=== PATIENT | female | born 2000 | race Caucasian/White ===

== ENCOUNTER 2019-09-07 09:53 | Outpatient (CLI) | payer MEDICAID, SELFPAY ==
--- NOTE | 2019-09-07 10:06 | US_ITS ---
WS: [id number] OB ultrasound, 09/07/2019 Clinical Data: ANATOMY SCAN/SECOND TRIMESTER Comparison: None. Findings: There is a single intrauterine in the breech presentation. The placenta is posterior and gr sola 0. There is a normal amount of amnionic fluid. The heart rate is 144 beats per minute. Measurements of growth and development: BPD: 4.49 cm HC: 16.1 cm AC: 14.71 cm FL: 3.19 cm The estimated weight is 320 g or approximately 2 oz.. The estimated gestational age is 19 weeks 6 days with an GUSTAVO of approximately 01/26/2020. anatomy show a normal stomach, kidneys, bladder, cord insertion, three-vessel cord, entire spin e, four-chamber heart, lateral cerebral ventricles, cerebellum and cisterna magna. US/US OB >= 14 weeks fetus [id number] Impression: 1. Single intrauterine in breech presentation. 2. Estimated gestational age 19 weeks 6 days with an GUSTAVO of 01/26/2020. 3. heart rate 144 beats per minute.
== END 2019-09-07 09:54 | disposition home or self-care (01) ==
LOC: RAD 09:58
PROVIDERS: Family Provider Pediatrics Adolescent Medicine; PCP Family Medicine; Visit Provider Family Medicine
DX: Z34.92 Encounter for supervision of normal pregnancy, unspecified, second trimester (principal)
CPT/HCPCS: 76805

== ENCOUNTER 2020-01-02 07:40 | Outpatient (CLI) | payer MEDICAID, SELFPAY ==
--- NOTE | 2020-01-02 07:52 | US_ITS ---
WS: [id number] LIMITED OBSTETRICAL ULTRASOUND HISTORY: GROWTH CHECK COMPARISON: 09/07/2019 Presentation: Vertex. Cervix: Closed and normal length. Placenta: Posterior, no previa or abruption. Grade: 2 HEART: FHR of 133 BPM. measurements: BPD = 8.6 cm = 34w4d HC = 31.4 cm = 35w2d AC = 33.2 cm = 37w1d FL = 7.1 cm = 36w3d Amniotic fluid visually is normal. EFW: 2933 g; 64th %. Head circumference and BPD are measuring at the fifth and 12th percentile retrospectively. Head measu rements also lag behind the remaining biometry by 2-3 weeks. AGA by ultrasound: 35w6d GUSTAVO by ultrasound: 01/31/2020 US/[place] [id number] IMPRESSION: 1. Single intrauterine gestation of 35 weeks 6 days with EDC of 01/23/2020. 2. Head measurements are lagging behind the remaining biometry by 2-3 weeks. 3. Overall the GUSTAVO is within 1-2 weeks.
== END 2020-01-02 07:41 | disposition home or self-care (01) ==
PROVIDERS: Family Provider Pediatrics Adolescent Medicine; PCP Family Medicine; Visit Provider Family Medicine
DX: O26.03 Excessive weight gain in pregnancy, third trimester (principal); Z3A.35 35 weeks gestation of pregnancy
CPT/HCPCS: 76816

== ENCOUNTER 2020-02-02 09:58 | Outpatient (CLI) | payer MEDICAID, SELFPAY ==
[2020-02-02 10:50] VITALS: RESP 18; TEMP 36.7
--- NOTE | 2020-02-02 10:58 | USR_ITS ---
PROCEDURE INFORMATION: Exam: US Biophysical Profile Without Non-Stress Test Exam date and time: 02/02/2020 11:32 AM Age: 19 years old Clinical indication: Other: Post dates; TECHNIQUE: Imaging protocol: US biophysical profile without non-stress testing. COMPARISON: US OB >= 14 weeks fetus [id number] 09/07/2019 10:13 AM FINDINGS: BIOPHYSICAL PROFILE: Breathin/2 Gross body movements: 2/2 tone: 2/2 Qualitative amniotic fluid: 2/2 Biophysical Profile Score: 8/8 US/US OB BPP wo NST [id number] IMPRESSION: 1. Biophysical profile score is 8 out of 8. 2. For vertex presentation. 3. heart beat 153 bpm. 4. Left-sided and fundal placenta.
[2020-02-02 11:00] VITALS: BMI 39.6
[2020-02-02 11:10] VITALS: BP 118/66; PULSE 102
[2020-02-02 11:17] VITALS: BP 121/72; PULSE 87
[2020-02-02 11:33] VITALS: BP 111/59; PULSE 96
[2020-02-02 11:38] VITALS: BP 111/59; PULSE 96; RESP 18; TEMP 36.7
== END 2020-02-02 11:35 | disposition home or self-care (01) ==
LOC: RAD 09:59 → OPOB 10:56 → OBGYN 02-04 07:58
PROVIDERS: Family Provider Pediatrics Adolescent Medicine; PCP Family Medicine; Visit Provider Family Medicine
DX: O48.0 Post-term pregnancy (principal); Z3A.00 Weeks of gestation of pregnancy not specified
CPT/HCPCS: 59025; 76819; 99211

== ENCOUNTER 2020-02-06 08:20 | Outpatient (CLI) | payer MEDICAID, SELFPAY ==
[2020-02-06 08:30] VITALS: BP 150/76; PULSE 101; O2SAT 98
[2020-02-06 09:04] VITALS: BP 150/76; RESP 18; O2SAT 99
--- NOTE | 2020-02-06 09:10 | PC.NURSE ---
THIS PARTS CHASER TALKED WITH PATIENT AND SHE SAID THAT SHE HAD APPOINTMENT FOR ULTRASOUND FOR 11 TODAY AND HAS APPOINTMENT TOMORROW WITH DR. MERCHANT. TOLD PT TO BE SURE AND KEEP APPOINTMENT WITH DR. MERCHANT AND GAVE HER ALL THE PRECAUTIONS. AND THEN DISCHARGED HER HOME.
--- NOTE | 2020-02-06 12:30 | US_ITS ---
WS: [id number] US OB lmt w/ BPP wo NST REASON FOR EXAM: GESTATIONAL DIABETES FINDINGS: Cephalic presentation is seen. heart rate 160 bpm Amniotic fluid indices appear to be normal. Abdominal circumference 38.17 cm Biparietal diameter the head 8.23 cm 33 weeks 1 day gestation the head circumference suggests 3 7 weeks 4 days gestation with a due date of February 23, 2020. Note the head with very low and diff icult to measure. The weight is estimated 39 59 g US/US OB lmt w/ BPP wo NST IMPRESSION: The measurements appear to be nonvalid due to the low position of the hea d. The fetus appears to be at least due date of March 04, 2020 The amniotic fluid indices heart rate and movement are all normal The fetus is in the cephalic presentation.
[2020-02-06 13:29] VITALS: BP 124/71; PULSE 130
== END 2020-02-06 08:21 | disposition home or self-care (01) ==
LOC: OPOB 08:28
PROVIDERS: Family Provider Pediatrics Adolescent Medicine; PCP Family Medicine; Visit Provider Family Medicine
DX: O48.0 Post-term pregnancy (principal); Z3A.00 Weeks of gestation of pregnancy not specified
CPT/HCPCS: 59025; 76815; 76819; 99211

== ENCOUNTER 2020-02-09 20:05 | Inpatient (IN) | payer MEDICAID, SELFPAY ==
[2020-02-09] VITALS (77 sets, daily range): BP systolic 0–148; BP diastolic 0–81; PULSE 72–124; RESP 18; TEMP 37.1; O2SAT 34–99
--- NOTE | 2020-02-09 20:14 | P.HP_ITS ---
Providers/Chief Complaint Admitting Physician: Cynthia Nye MD Primary Care Provider: Cynthia Nye MD Chief Complaint: ob triage HPI PROPERTY CLAIMS MANAGER History of Present Illness Radha Thompson is a 19 year old female 1 para 0 with an EDC of 01/26/2020 as determined by sure last menstrual period of 04/21/2019 and confirmed by ultrasound. She presents at 42-0/7 weeks gestation for pain relief. She experienced spontaneous rupture of membranes at approximately 330 this morning. Her fluid was clear and without odor. She then began danyell shortly thereafter and was laboring at home with the goal of a home . On her last cervical exam with the family's packing machine tender, patient had just an anterior rim of cervix and was +1 station. Most of her pain is in her back, and she is unable to relax in order to completely dilate. She is requesting an epidural. Her course has been complicated by excessive weight gain in . She is gained over 70 pounds, mostly in the hips, thighs and buttock area. Her fundal height has never been more than could be accounted for by her dates. We had an estimated weight done 3 days ago which was 3950 g. She has been afebrile throughout her labor today. She states that her contractions are every 1 to 2 minutes and strong. Present Details : 1 Para: 0 Date of Last Menstrual Period: 04/21/19 Calculated Date of Delivery: 01/26/20 Gestational Age Based on Last Menstrual Period: 42 Dating criteria OB: LMP confirmed by 2nd trimester US care: good care Ultrasounds: normal mid trimester US and other (NST/BPP on 02/02/2020 and 02/06/2020 were 10 out of 10, EFW on 02/06/2020 was 3950 g) Obstetrical complications: other (Postdates) Medical complications OB: other (Excessive weight gain during ) Labs Blood type OB HPI: O (+) positive Rubella: Immune RPR: Negative HBsAG: Negative Other Lab Information: INITIAL LABS: Blood Type: O+ D (Rh) Type: Positive Antibody Screen: Negative HCT/HB.0/35.2 Rubella: Immune VDRL: Nonreactive Urine Culture/Screen: Negative HBsAg: Negative HIV Counseling/Testing: Negative Hepatitis C: Negative Chlamydia: Negative GC: Negative Varicella Titer: Immune MSAFP/Multiple Markers: Negative 24-30 WEEK LABS: HCT/HGB: 10.9 Diabetes Screen: 130 3 hour GTT (if screen abnormal): [] D (Rh) Antibody Screen: [] Tdap: Given 11/08/2019 Group B Strep (35-37 weeks): Negative Review of Systems Const: Denies: fever(s) : Reports: pelvic pain (Intermittent and consistent with contractions which are also felt in her back, pressure); Denies: vaginal odor, vaginal bleeding or vaginal discharge Medications/Allergies Home Medications Medication Instructions Recorded Confirmed Last Taken Type [id number] fumarate-FA tab PO 02/02/20 02/02/20 09:00 History [] Allergies Allergy/AdvReac Type Severity Reaction Status Date / Time No Known Allergies Allergy Verified 02/02/20 11:04 PFSH PROPERTY CLAIMS MANAGER PFSH: Surgical History (Updated 02/09/20 @ 20:28 by Cynthia Nye MD) History of submandibular gland removal Social History (Updated 02/09/20 @ 20:31 by Cynthia Nye MD) Smoking and tobacco status: never smoked Second hand smoke exposure: No Alcohol intake: never Substance/Drug Use: never Adopted: No Caregiver/support person: Yes Lives independently: Yes Household members: family Marital status: Single Number of children: 0 Number of grandchildren: 0 Highest education level completed: High School Graduate Education level details: Homeschooled Current occupational status: employed 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 Current occupational exposures/hazards: No History of recent travel: No Sexually active: Yes Other Female Reproductive History: Hx Age of Menarche: 9 Duration of menses: 6-7 days Date of Last Menstrual Period: 04/21/19 Cycle Length: 30 Menstrual flow: normal/abnormal: normal History History History 1 Term 0 Miscarriages/Ectopic 0 0 Living Children 0 Care GUSTAVO Calculator Estimated Delivery Date Method Current WG Current Estimate 01/26/20 LMP (Certain) 42w 0d Expected Delivery Route/Plan Vaginal Vitals/I&O/Wt Last Vital Signs Pulse 94 02/09/20 20:08 BP 145/81 02/09/20 20:08 Physical Exam Narrative: EXAM NARRATIVE: For complete history and physical examination plea se refer to her record. heart tones are category 1 with moderate variability, accelerations and no decelerations and normal baseline with contractions every 1-1/2 to 2 minutes and strong Const: COMMON NORMALS: patient oriented x3, alert and well nourished GENERAL APPEARANCE: cooperative and in distress (Breathing and moaning with contractions) : MANUAL OB EXAM: dilated 9 cm (Anterior rim remains), effaced fully, station +1 and other (Vertex) AMNIOTIC FLUID: clear Psych: COMMON NORMALS: mental status grossly normal, Normal thought process present, cooperative, normal affect and speech normal A&P Assessment and plan (1) Post-dates : Status: Acute Qualifiers: Post-term type: 40-42 weeks gestation Qualified Code(s): O 48.0 - Post-term (2) Spontaneous rupture of membranes: Status: Acute (3) Spontaneous onset of labor: Status: Acute (4) Excessive weight gain during , antepartum: Status: Acute Additional A&P Information Patient's packing machine tender called me at 7:09 PM and stated that patient had had an anterior rim of cervix which she felt was starting to swell. Patient had been progressing very well prior to this, and patient was desirous of pain relief. The packing machine tender felt that this was necessary as well in order to progress to the second stage of labor. I advised them to come to the hospital immediately as her membranes had been ruptured over 15 hours as well. Please refer to extensive documentation in her record. Attestations Medical Necessity Statement*: As patient has ruptured membranes and is actively laboring she will continue to need inpatient hospitalization. Time Spent in Patient Care: Greater than 35 minutes (>than 50% of time spent in counselling and/or direct pt care on unit) . Coding Level of Care Code Acute Clinical Partner for Chg Fwd Diagnoses Post-dates O48.0 Post-term type: 40-42 weeks gestation Spontaneous rupture of membranes Spontaneous onset of labor Excessive weight gain during , antepartum O26.00
[2020-02-09 20:28] LABS: Basophils % 0.2 %; Hematocrit 34.6 % (37.0-47.0); Hemoglobin 10.7 g/dL (11.5-15.3); Lymphocytes # 0.9 10^3/uL (1.5-6.5); Lymphocytes % 3.8 %; Mean Corpuscular HGB Conc 30.9 g/dL (30.0-36.0); Mean Corpuscular Hemoglobin 25.2 pg (28.0-34.0); Mean Corpuscular Volume 81.4 fL (81-99); Mean Platelet Volume 9.3 fL (7.4-10.4); Monocytes # 0.9 10^3/uL (0.2-0.9); Monocytes % 3.9 %; Neutrophils # 21.1 10^3/uL (1.8-8.0); Neutrophils % 91.4 %; Nucleated Red Blood Cells % 0 %; Platelet Count 315 10^3/cmm (130-400); Red Blood Count 4.25 10^6/uL (4.1-5.3); Red Cell Distribution Width 15.8 % (12.1-15.1); White Blood Count 23.1 10^3/uL (4.5-13.0)
[2020-02-09] MEDS: diphenhydrAMINE 50 mg/mL SDV 1mL IVP (20:37)
--- NOTE | 2020-02-09 21:44 | P.ANESASSM_ITS ---
Pre-Anesthetic Assessment Pre-Anesthetic Assessment: Height/Weight: Height 1.65 m Pulse BP Pulse Ox 87 100/47 99 02/09/20 21:40 02/09/20 21:40 02/09/20 21:42 Preop Diagnosis: IUP Proposed Procedure: labor epidural Was Beta [place] taken within 24 hours: N/A Social: Social History: No alcohol and No tobacco Exam: Pre-Anes Outpt Exam: alert, oriented x 3 and clear to auscultation bilaterally Airway: Submandibular: WNL Cervical ROM: WNL MP: 2 History/ROS: No significant history except as noted Pulmonary: Pulmonary: None reported CV/HEM: CV/HEM: HTN : : None reported Hepatic: Hepatic: None reported GI: GI: GERD Metabolic: Metabolic: None reported Musc/skel: Musc/skel: None reported Neuropsych: Neuropsych: None reported Anesthetic Plan: ASA status: 2 Anesthesia: Anesthesia Evaluation and Regional (specify below) PFSH Anesthesia PFSH: Surgical History (Updated 02/09/20 @ 20:28 by Cynthia Nye MD) History of submandibular gland removal Social History (Updated 02/09/20 @ 20:31 by Cynthia Nye MD) Smoking and tobacco status: never smoked Second hand smoke exposure: No Alcohol intake: never Substance/Drug Use: never Adopted: No Caregiver/support person: Yes Lives independently: Yes Household members: family Marital status: Single Number of children: 0 Number of grandchildren: 0 Highest education level completed: High School Graduate Education level details: Homeschooled Current occupational status: employed 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 Current occupational exposures/hazards: No History of recent travel: No Sexually active: Yes Female Reproductive History: Date of last menstrual period: 04/21/19 : 1 Data Anesthesia CBC & Chem 7: 02/09/20 20:14 Other Labs: Laboratory Results - last 48 hr 02/09/20 20:14 WBC 23.1 H RBC 4.25 Hgb 10.7 L Hct 34.6 L MCV 81.4 MCH 25.2 L MCHC 30.9 RDW 15.8 H Plt Count 315 MPV 9.3 Neut % (Auto) 91.4 Lymph % (Auto) 3.8 [place] % (Auto) 3.9 Eos % (Auto) 0.0 Baso % (Auto) 0.2 Neut # (Auto) 21.1 H Lymph # (Auto) 0.9 L [place] # (Auto) 0.9 Eos # (Auto) 0.0 Baso # (Auto) 0.0 Nucleated RBC % (auto) 0 Nucleated RBCs # 0.0 Cardiac Studies: No Data to Display Anesthesia Procedures Epidural: Time Out Performed: Yes Consents Signed: Procedure Consent (to room at 2050) and NPO Consent Consent: requested by attending/covering physician and from patient Lumbar Level: L3-L4 Epidural position: sitting Epidural procedure: sterile prep of area, 1% lidocaine to numb the area (3 cc ), 18 g needle (L3-L4 interspace), negative for paresthesia passed, neg for p aresthesia, test dose given (3 cc), 1.5% xylocaine 1:200k epi, no systemic response, sterile dressing applied, L.U.D. no apparent complications and 0.2% Ropiavacaine @ mls/hr (13 mls/hr) Additional Comments: ELIAS at 8 cm catheter threaded without difficulty. @ 14 cm at skin. 2 % lido 10 mls given. pump started VSS see OBYX
[2020-02-10] VITALS (41 sets, daily range): BP systolic 85–149; BP diastolic 45–81; PULSE 72–146; RESP 16–118; TEMP 36.3–37.9; O2SAT 97–100
[2020-02-10] MEDS: ampicillin 2,000 MG in sodium chloride 0.9% (plus) 50 ML 100 MG IV (00:16)
--- NOTE | 2020-02-10 01:22 | PM.OBGYPN ---
WATCH CASE POLISHER Subjective Subjective: Interval history: Patient arrived at the hospital just after 7:30 PM on 02/09/2020. We began her IV fluids in preparation for her epidural, and she was able to get her epidural at 2130. She was found to be completely dilated at 2205, and she labor down until 2330. At that time we began pushing, and we also noted passage of meconium in her amniotic fluid. She received her first dose of ampicillin at 00 16 since membranes had been ruptured approximately 20 hours. We had a brief stint during which heart tones were in the upper 160s to 170s at which time patient's temperature was found to be 100.3. This was at 0005. She pushed fairly regularly from 2330 until 0114 on 02/10/2020, with the exception of about a 10 to 15-minute pause. She was complaining of low back pain, and at 0114 we elected to have her rest for a while on her left side with the peanut ball in place. Throughout her active portion of the second stage she held both legs, did tug-of-war, did alternate legs holding behind the knee, all fours and close knee pushing. Labor: Pain Control: epidural Dilation (cm): 10 Effacement (%): 100 Station: 0 Amniotic Membrane Status: Ruptured Monitor Mode: External Contraction Pattern: Irregular Contraction Intensity: Strong/Firm Status: Category l Vitals/I&O/Wt Last Vital Signs Pulse 146 H 02/10/20 01:04 BP 85/69 02/10/20 01:04 Pulse Ox 98 02/09/20 23:18 Physical Exam Narrative: EXAM NARRATIVE: heart tones have a baseline in the 140s with moderate variability, accelerations and no decelerations. Contractions are every 1-1/2 to 4 minutes and strong : MANUAL OB EXAM: dilated 10 cm, effaced fully, station 0 and other (Vertex, occiput posterior) AMNIOTIC FLUID: Meconium-stained amniotic fluid present Data : 02/09/20 20:14 A&P Assessment and plan (1) Prolonged artificial rupture of membranes, antepartum: We have begun ampicillin, and there is been no maternal fever. Status: Acute (2) Meconium in amniotic fluid: Status: Acute Attestations Medical Necessity Statement*: As patient is actively laboring she will continue to need inpatient management/hospitalization. Coding Level of Care Code Acute Emergency Vehicle Dispatcher for Chg Fwd Diagnoses Prolonged artificial rupture of membranes, antepartum O75.5 Meconium in amniotic fluid P96.83
--- NOTE | 2020-02-10 03:55 | PM.OBGYPN ---
AGING ROOM OPERATOR Subjective Subjective: Interval history: At 1:14 AM patient began rest on her left side with the peanut ball in place. She spent at least 30 minutes in that position and then was switched to the right side where she remained with the peanut ball in place for at least 30 minutes as well. She stated that her back pain seemed to be better at that time but she was not able to rest very well. She then was doing another attempt at pushing and did not seem to be changing at all in station. Baby remained occiput posterior at that time. We then put patient in Trendelenburg for approximately 20 minutes, and she noted that she did not have much in the way of back pain but could feel the baby more in her ribs initially on her left side and then on her right side. It looked as though the baby's vertex did come out of the pelvis slightly while she was in Trendelenburg, but we were only able to get her between LOP and ROP. Patient was then placed in the thrown position, and she was unable to tolerate it secondary to back and pelvic pain. Labor: Dilation (cm): 10 Effacement (%): 100 Station: 0 Amniotic Membrane Status: Ruptured Monitor Mode: External Contraction Pattern: Irregular Contraction Intensity: Strong/Firm Status: Category l Vitals/I&O/Wt Last Vital Signs Pulse 116 H 02/10/20 03:44 BP 123/60 02/10/20 03:44 Pulse Ox 98 02/09/20 23:18 Data : 02/09/20 20:14 A&P Assessment and plan (1) Meconium in amniotic fluid: Status: Acute (2) Prolonged artificial rupture of membranes, antepartum: Status: Acute (3) Excessive weight gain during , antepartum: Status: Acute (4) Post-dates : Status: Acute Qualifiers: Post-term type: 40-42 weeks gestation Qualified Code(s): O48.0 - Post-term (5) Spontaneous onset of labor: Status: Acute (6) Spontaneous rupture of membranes: Status: Acute (7) Occiput posterior presentation of fetus: I have called Dr. Keene at approximately 3:40 AM for section consultation. Status: Acute Attestations Medical Necessity Statement*: As patient has been laboring and has not yet delivered and is about to go to section she will continue to need inpatient hospitalization Coding Level of Care Code Acute Automatic Bow Maker Machine Tender for Chg Fwd Diagnoses Meconium in amniotic fluid P96.83 Prolonged artificial rupture of membranes, antepartum O75.5 Excessive weight gain during , antepartum O26.00 Post-dates O48.0 Post-term type: 40-42 weeks gestation Spontaneous onset of labor Spontaneous rupture of membranes Occiput posterior presentation of fetus O64.0XX0
[2020-02-10] MEDS: famotidine 20 mg/2 mL INJ IVP (04:09)
[2020-02-10] MEDS: citric acid-sodium citrate 30 mL UDC PO (04:10)
[2020-02-10] MEDS: metoclopramide 5 mg/mL SDV 2 mL 10 MG IVP (04:10)
--- NOTE | 2020-02-10 04:24 | PM.OBGYCN ---
Providers/Reason for Consult Consulting Physican/Specialty*: Jonathan Keene MD -consulting for section Reason for Consult*: Arrest of descent Attending Physician: Cynthia Nye MD Primary Care Provider: Cynthia Nye MD ORDERING BOX OPERATOR Consult HPI History of Present Illness Radha Thompson is a 19 year old at 42.1 weeks gestation by LMP consistent with ultrasound. Her is complicated by postdates , plan to deliver with accounting manager at home. The patient presented to labor and delivery triage secondary to labor. She had been labor at home and her pain was significant. From reports, it sounds as if she might have been pushing prior to her cervix being fully dilated with a accounting manager at home. Upon arrival, she was an anterior rim. She began pushing at approximately 11:30 PM on 02/09/2020. After 3 hours of pushing, there was no significant descent. For this reason I was consulted for a section. SROM took place at approximately 3:30 AM on 02/09/2020. Clear fluid was noted. That has turned to meconium stained fluid as of 10:05 PM on 02/09/2020. The patient had an elevated temperature and was started on ampicillin at midnight. Currently the patient's epidural is not working well and she is having significant pain with contractions. The patient currently denies any chest pains and shortness of breath. Present Details : 1 Para: 0 Date of Last Menstrual Period: 04/21/19 Meds/Allergies Home Medications and Allergies Home Medications Medication Instructions Recorded Confirmed Last Taken Type [id number] fumarate-FA tab PO 02/02/20 02/02/20 09:00 History [] Allergies Allergy/AdvReac Type Severity Reaction Status Date / Time No Known Allergies Allergy Verified 02/02/20 11:04 Current Medications Current Medications Generic Name Dose Route Start Last Admin Trade Name Freq PRN Reason Stop Dose Admin Ampicillin Sodium 2,000 mg/ 50 mls @ 100 mls/hr 02/10/20 00:15 02/10/20 00:16 Sodium Chloride IV 100 mls/hr ONCE BETTIE Administration Protocol PFS ORDERING BOX OPERATOR PFSH: Surgical History History of submandibular gland removal Social History Smoking and tobacco status: never smoked Second hand smoke exposure: No Alcohol intake: never Substance/Drug Use: never Adopted: No Caregiver/support person: Yes Lives independently: Yes Household members: family Marital status: Single Number of children: 0 Number of grandchildren: 0 Highest education level completed: High School Graduate Education level details: Homeschooled Current occupational status: employed 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 Current occupational exposures/hazards: No History of recent travel: No Sexually active: Yes Other Female Reproductive History: Hx Age of Menarche: 9 Duration of menses: 6-7 days Date of Last Menstrual Period: 04/21/19 Cycle Length: 30 Menstrual flow: normal/abnormal: normal Vitals/I&O/Wt Last Vital Signs Pulse 105 H 02/10/20 04:04 BP 139/66 02/10/20 04:04 Pulse Ox 98 02/09/20 23:18 Physical Exam Narrative: EXAM NARRATIVE: General: Alert and oriented x3 Mouth: Mucous membranes moist, pharynx non-erythematous Cardiac: Regular rate and rhythm without murmurs Lungs: Clear to auscultation bilaterally without wheezes, crackles or rhonchi Abdomen: Soft, fundus consistent with gestational age. No signs of infection over the lower abdomen. Extremities: Trace edema in the bilateral lower extremities A&P Assessment and plan (1) Intrauterine : Status: Acute (2) Arrest of descent, delivered, current hospitalization: Status: Acute Consult Attestations Medical Necessity Statement: Patient will be here for greater than 2 midnights due to intrapartum and management after section. Coding Level of Care Code Acute Data Entry Machine Operator for Chg Fwd Diagnoses Intrauterine Z34.90 Arrest of descent, delivered, current hospitalization O62.1
[2020-02-10] MEDS: clindamycin 900 MG/50 ML PREMIX 100 MG IV ×3 (04:45→20:35)
--- NOTE | 2020-02-10 06:14 | PM.OP ---
Operative Report Date of procedure: February 10, 2020 Pre-op Diagnosis: IUP Pre-op Diagnosis: 1. Intrauterine at 42.1 weeks gestation 2. Arrest of descent 3. Prolonged rupture of membranes 4. Meconium-stained fluid Post-op Diagnosis: 1. Intrauterine status post primary low transverse section at 42.1 weeks gestation 2. Arrest of descent 3. Prolonged rupture of membranes 4. Meconium-stained fluid 5. Delivery of healthy female weighing 9 pounds 2 ounces with Apgars of Post-op Findings: 1. Delivery of healthy infant female weighing 9 pounds 2 ounces 2. head in the OP position. 3. Intact placenta with meconium staining. Procedure Done: Primary low transverse section Specimens removed/disposition: Placenta discarded Surgeon: Jonathan Keene Anesthesia: General Estimated blood loss (mL): 800 Complications: None Condition: stable Brief History: Radha Thompson is a 19 year old G1 now P1 status post primary low transverse section at 42.1 weeks gestation by LMP consistent with ultrasound. 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 The patient presented to labor and delivery secondary to pushing at home without delivery. She is found to have an anterior rim. The patient became complete and pushed for approximately 3 hours, however did not have any significant descent. Multiple position changes were tried, however without descent, it was confirmed that a section was necessary. Please see Dr. Nye's note for full details. Procedure: After informed consent was obtained, the patient was taken to the operating room and the patient was prepped and draped in normal sterile fashion in a dorsal supine position. General anesthesia was given and adequate anesthesia was confirmed. At 4:40 AM on 02/10/2020, a Pfannenstiel skin incision was made and carried through to the underlying layer of fascia using a scalpel. The fascial incision was then extended laterally using curved Mayos. The fascia was then grasped with Shivam clamps and the underlying rectus muscles were dissected off taking care to avoid injury to the underlying tissues. The peritoneum was entered bluntly with one digit. It was then bluntly. The bladder blade was placed and the vesicouterine peritoneum was well below the lower uterine segment of the uterus. The uterine incision was made in the lower uterine segment in a transverse fashion with the scalpel at 4:42 AM. The amniotic membrane was entered bluntly and a large amount of clear fluid was noted. There was difficulty with delivering the 's head, so a Kiwi was placed to assist with delivery. The infant's head delivered atraumatically at 4:43 AM. There was a nuchal cord. The infant was in the OP position. The mouth and nose were suctioned. The rest of the delivered without difficulty. The was crying shortly after delivery and had good tone. The cord was clamped and cut and the infant was handed to the awaiting pediatric nurses. The placenta was then manually expressed. The uterus was then exteriorized from the abdomen and a wet lap was used to clear the uterus of clots and debris. The bladder blade was reinserted and the uterine incision was closed using 0 chromic in a running locking fashion. A second layer of the same suture was used in the same manner. Excellent hemostasis was obtained. Next the posterior cul-de-sac was inspected and was cleared of any blood. The uterus was then placed back into the abdomen. The gutters were cleared of any further clots and debris and the uterine incision was again inspected and hemostasis was noted. The subfascial tissue was inspected for hemostasis. The peritoneum was re-approximated using 2-0 plain in a running fashion. The fascia was then re-approximated using 0 Vicryl in a running fashion. The subcutaneous tissue was inspected for hemostasis. Souleymane's fascia was then re-approximated using 3-0 plain in a running fashion. Good hemostasis was noted. The subcutaneous tissue was then re-approximated using a subcuticular stitch with 4-0 Vicryl. Steri-Strips were then placed to re-approximate the skin layer. The patient tolerated the procedure well and was recovered in stable condition. Estimated blood loss was 800 mL. Urine in the Delgado catheter was yellow. Currently both the mother and infant are doing well.
[2020-02-10] MEDS: miSOPROStol 200 mcg Tablet 800 MCG PR (08:48)
[2020-02-10] MEDS: ketorolac 30 mg/mL INJ IVP ×2 (13:54→20:35)
--- NOTE | 2020-02-10 17:20 | PC.NURSE ---
Patient ambulated 2 laps [address] hallway, tolerated well. Denied feeling any weakness, dizziness or lightheadedness. Patient educated she may ambulate ad richard as long as she feels comfortable, and to ask for help if she needs anything. Patient acknowledges understanding.
[2020-02-10] MEDS: docusate sodium 100 mg Capsule PO (20:35)
[2020-02-10 20:44] LABS: Hemoglobin 7.3 g/dL (11.5-15.3); Mean Corpuscular HGB Conc 30.4 g/dL (30.0-36.0); Mean Corpuscular Hemoglobin 25.4 pg (28.0-34.0); Mean Corpuscular Volume 83.6 fL (81-99); Mean Platelet Volume 9.1 fL (7.4-10.4); Platelet Count 216 10^3/cmm (130-400); Red Blood Count 2.87 10^6/uL (4.1-5.3); Red Cell Distribution Width 16.1 % (12.1-15.1); White Blood Count 16.6 10^3/uL (4.5-13.0)
[2020-02-11 01:00] VITALS: BP 102/65; PULSE 97; RESP 17; TEMP 36.9
[2020-02-11] MEDS: ketorolac 30 mg/mL INJ IVP (01:27)
--- NOTE | 2020-02-11 07:36 | PM.PN ---
Subjective Subjective: Interval history: The patient is feeling well today. Her pain is well controlled with current medications. The patient's bleeding is decreasing. She still has a few clots. The patient is ambulating and voiding. The patient is passing gas and tolerating food by mouth. Vitals/I&O/Wt Last Vital Signs Temp 98.5 F 02/11/20 01:00 Pulse 97 02/11/20 01:00 Resp 17 02/11/20 01:00 BP 102/65 02/11/20 01:00 Pulse Ox 98 02/09/20 23:18 02/10/20 02/11/20 02/11/20 22:59 06:59 14:59 Intake Total 2192 / 2192 600 / 2792 Output Total 400 / 1925 Balance 1792 / 267 600 / 867 Physical Exam Narrative: EXAM NARRATIVE: General: Alert and oriented x3 Mouth: Mucous membranes moist, pharynx non-erythematous Cardiac: Regular rate and rhythm without murmurs Lungs: Clear to auscultation bilaterally without wheezes, crackles or rhonchi Abdomen: Soft, mild diffuse tenderness. Incision is clean and dry without signs of infection or dehiscence. Extremities: Trace edema in the bilateral lower extremities Urinary Catheter Management^: Delgado Latex: Cath Placed During This Visit: no Reason for Continuing Indwelling Catheter: Required Immobilization for Trauma or Surgery or Anesthesia Data : 02/10/20 20:33 A&P Additional A&P Information The patient is doing well today. She is ambulating, voiding, passing gas and tolerating food by mouth. Her pain is well controlled. Her bleeding is decreasing. The patient's hemoglobin has dropped down to 7.3. We will start ferrous sulfate. We will recheck a level tomorrow morning to be sure that it is not decreasing further. Plan for discharge home tomorrow if everything continues to go well. Attestations Medical Necessity Statement*: Patient continues need inpatient care for treatment of the above issues. Plan for discharge home tomorrow if things continue to go well. Coding Level of Care Code Acute Director Process Engineering for Cayetano Coffey
[2020-02-11] MEDS: ferrous sulfate EC 325 mg Tablet PO ×2 (09:29→18:22)
[2020-02-11] MEDS: docusate sodium 100 mg Capsule PO ×2 (09:29→18:22)
[2020-02-11] MEDS: prenatal vitamin Capsule 1 CAP PO (09:29)
[2020-02-11] MEDS: acetaminophen 325 mg Tablet 650 MG PO (10:57)
[2020-02-11 12:13] VITALS: RESP 18
[2020-02-11] MEDS: oxyCODONE-APAP 5-325 mg Tablet PO (12:13)
[2020-02-11 16:08] VITALS: BP 107/69; PULSE 96; RESP 18; TEMP 36.7; O2SAT 97
[2020-02-11 22:00] VITALS: BP 115/72; PULSE 90; RESP 17
[2020-02-12 03:21] VITALS: RESP 18
[2020-02-12] MEDS: oxyCODONE-APAP 5-325 mg Tablet PO (03:21)
[2020-02-12 04:00] VITALS: BP 110/68; PULSE 97; RESP 16; O2SAT 97
[2020-02-12 05:34] LABS: Basophils % 0.2 %; Eosinophils # 0.3 10^3/uL (0.0-0.8); Eosinophils % 2.5 %; Hematocrit 23.7 % (37.0-47.0); Hemoglobin 7.1 g/dL (11.5-15.3); Lymphocytes # 1.2 10^3/uL (1.5-6.5); Lymphocytes % 10.5 %; Mean Corpuscular Hemoglobin 25.5 pg (28.0-34.0); Mean Corpuscular Volume 85.3 fL (81-99); Mean Platelet Volume 9.2 fL (7.4-10.4); Monocytes # 0.8 10^3/uL (0.2-0.9); Monocytes % 6.8 %; Neutrophils # 9.4 10^3/uL (1.8-8.0); Neutrophils % 79.2 %; Nucleated Red Blood Cells % 0 %; Platelet Count 212 10^3/cmm (130-400); Red Blood Count 2.78 10^6/uL (4.1-5.3); Red Cell Distribution Width 16.3 % (12.1-15.1); White Blood Count 11.9 10^3/uL (4.5-13.0)
--- NOTE | 2020-02-12 08:28 | P.DS_ITS ---
Discharge Providers Date of Admission: 02/09/20 20:05 Date of Discharge: February 12, 2020 Attending Provider at Admission: Cynthia Nye MD Attending Provider at Discharge: Jonathan Keene MD Primary Care Provider: Cynthia Nye MD Diagnoses at Discharge Discharge Diagnosis (1) Intrauterine : Status: Resolved (2) Arrest of descent, delivered, current hospitalization: Status: Resolved Reason for Visit Reason for Visit: ob triage Hospital Course Hospital Course: Radha Thompson is a 19 year old G1 now P1 status post primary low transverse section at 42.1 weeks gestation by LMP consistent with ultrasound. 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 This is a patient of Dr. Nye's and I was consulted for delivery. The jaiden ent presented to labor and delivery secondary to pushing at home without delivery. She was found to have an anterior rim. The patient became complete and pushed for approximately 3 hours, however did not have any significant descent. Multiple position changes were tried, however without descent, it was confirmed that a section was necessary. Please see Dr. Nye's note for full details. The patient had a primary low transverse section without complication. The patient did start with anemia with a hemoglobin of 10.1 that dropped to 7.1. The patient did not have any significant symptoms with this. Her bleeding decreased well. Her pain was well controlled prior to discharge. The patient is ambulating, voiding, passing gas and tolerating food by mouth. Routine post care instructions were discussed. The patient is in agreement with discharge home at this time. All questions were answered. Physical Exam Narrative: EXAM NARRATIVE: General: Alert and oriented x3 Mouth: Mucous membranes moist, pharynx non-erythematous Cardiac: Regular rate and rhythm without murmurs Lungs: Clear to auscultation bilaterally without wheezes, crackles or rhonchi Abdomen: Soft, mild diffuse tenderness. Incision is clean and dry without signs of infection or dehiscence. Extremities: Trace edema in the bilateral lower extremities Urinary Catheter Management^: Delgado Latex: Cath Placed During This Visit: no Reason for Continuing Indwelling Catheter: Not indwelling catheter Discharge Data Data Completed and Pending: Labs from last 24 hours 02/12/20 04:40 WBC 11.9 RBC 2.78 L Hgb 7.1 L Hct 23.7 L MCV 85.3 MCH 25.5 L MCHC 30.0 RDW 16.3 H Plt Count 212 MPV 9.2 Neut % (Auto) 79.2 Lymph % (Auto) 10.5 [place] % (Auto) 6.8 Eos % (Auto) 2.5 Baso % (Auto) 0.2 Neut # (Auto) 9.4 H Lymph # (Auto) 1.2 L [place] # (Auto) 0.8 Eos # (Auto) 0.3 Baso # (Auto) 0.0 Nucleated RBC % (a uto) 0 Nucleated RBCs # 0.0 Vitals: Last Vital Signs Temp 98.1 F 02/11/20 16:08 Pulse 97 02/12/20 04:00 Resp 16 02/12/20 04:00 BP 110/68 02/12/20 04:00 Pulse Ox 97 02/12/20 04:00 Discharge Plan Discharge Patient Disposition: Home, Self-Care Condition: Good Prescriptions: New ibuprofen 800 mg Tablet 800 mg PO TID Qty: 60 RF: 0 oxycodone-acetaminophen 5-325 mg Tablet 1 tab PO Q6H PRN (Reason: Moderate To Severe Pain) Qty: 15 RF: 0 ferrous sulfate 325 mg (65 mg iron) Tablet,Delayed Release (Dr/Ec) 325 mg PO TID Qty: 90 RF: 0 Changed 28-800 mg-mcg Tablet 1 tab PO DAILY Qty: 30 RF: 3 Discharge Orders: Discharge Order (Routine); Ordered 02/12/20 Ordered By: Jonathan Keene Referrals: Cynthia Nye MD [Primary Care Provider] - 03/25/20 1:00 pm (* your [address] follow up with Dr. Nye is 03/25/2020 at 1:00pm. ) Jonathan Keene MD [Physician] - 02/18/20 3:00 pm (* Your incision check with Dr. Keene is 02/18/2020 at 3:00pm ) Discharge Diet: Regular Discharge Activity: Limit activity as instructed Patient Instructions: Oxycodone/Acetaminophen (By mouth), Section (DC), OB Discharge Report, OB Food/Drug Interaction Guide Activity Restrictions/Additional Instructions: Do not lift anything heavier than your baby in the car seat for the first 3 weeks, then gradually increase. If you have any concerns for infection in your incision site, please seek immediate medical attention. Nothing per vagina for 6 weeks. Discharge Date/Time: 02/12/20 12:15 Discharge Attestations Time Spent in Discharge Care*: greater than 30 min Quality Metrics Clinical Quality Measures During this hospital stay, did patient experience: None Coding Level of Care Code Acute Front Desk Assistant for Chg Fwd Diagnoses Intrauterine Z34.90 Arrest of descent, delivered, current hospitalization O62.1
[2020-02-12] MEDS: ferrous sulfate EC 325 mg Tablet PO (10:06)
[2020-02-12] MEDS: prenatal vitamin Capsule 1 CAP PO (10:06)
[2020-02-12] MEDS: docusate sodium 100 mg Capsule PO (10:06)
[2020-02-12 12:10] VITALS: BP 120/71; PULSE 106; RESP 18; TEMP 36.5; O2SAT 98
== END 2020-02-12 12:15 | disposition home or self-care (01) | DRG 788 ==
LOC: OBGYN 02-10 09:14 → OPOB 02-10 09:14
PROVIDERS: Family Medicine; Admitting Provider Family Medicine; PCP Family Medicine; Visit Provider Family Medicine
PROC: 10D00Z1 Extraction of Products of Conception, Low, Open Approach (ICD-10-PCS; CPT 59514; principal; 2020-02-10 04:30)
DX: O64.0XX0 Obstructed labor due to incomplete rotation of fetal head, not applicable or unspecified (principal); Z3A.42 42 weeks gestation of pregnancy; Z37.0 Single live birth; O48.0 Post-term pregnancy; P03.82 Meconium passage during delivery; O69.2XX0 Labor and delivery complicated by other cord entanglement, with compression, not applicable or unspecified
CPT/HCPCS: 12345; 36415; 51702; 59025; 59409; 85025; 85027; 96375; 98960; 99211; G0378; J0290; J0330; J1100; J1200; J1885; J2001; J2370; J2405; J2590; J2704; J2765; J3010; J3490